=== PATIENT | female | born 1970 | race Two or more races ===

== ENCOUNTER 2023-09-23 14:54 | Emergency (ER) | payer SELFPAY ==
[~2023-09-23] VITALS: Ht 170.2 cm; Wt 140.5 kg
[2023-09-23] MEDS ORDERED: LISI10TA34 PO (16:16)
[2023-09-23 16:18] LABS: Basophils # (auto) 0 10 ^3/uL (0-0.2); Basophils % (auto) 0.2 % (0.0-2.0); Eosinophils # (auto) 0.1 10 ^3/uL (0-0.8); Eosinophils % (auto) 1.1 % (0.0-7.0); Hemoglobin 12.4 g/dL (12.2-16.2); Lymphocytes # (auto) 2.4 10 ^3/uL (0.4-5.4); Lymphocytes % (auto) 33.2 % (10.0-50.0); Mean Corpuscular Hemoglobin 27.9 pg (28.0-32.0); Mean Corpuscular Hgb Conc. 33.5 g/dL (32.0-36.0); Mean Corpuscular Volume 83.2 fL (80.0-100.0); Monocytes # (auto) 0.3 10 ^3/uL (0-1.3); Monocytes % (auto) 4.7 % (0.0-12.0); Neutrophils # (auto) 4.5 10 ^3/uL (1.6-8.6); Neutrophils % (auto) 60.8 % (37.0-80.0); Red Blood Cells 4.44 10^6/uL (4.0-5.20); Red Cell Distribution Width 14.8 % (11.8-14.3); White Blood Cell 7.4 10^3/uL (4.4-10.8)
[2023-09-23] MEDS: cloNIDine HCL 0.1 MG TAB PO ONE (16:23)
[2023-09-23 16:27] VITALS: BP 172/82; PULSE 84; RESP 19; TEMP 97.7; O2SAT 97
[2023-09-23 16:35] LABS: Chloride 105 mmol/L (98-107); Potassium 3.7 mmol/L (3.5-5.1); Sodium 139 mmol/L (136-145)
[2023-09-23 16:36] LABS: Anion Gap 4 (5-15); Carbon Dioxide 30 mmol/L (20-30)
[2023-09-23 16:37] LABS: Calcium 9.5 mg/dL (8.5-10.1)
[2023-09-23 16:41] LABS: Glucose 262 mg/dL (74-106)
[2023-09-23 16:42] LABS: BUN/Creatinine Ratio 23.8 (10.0-20.0); Blood Urea Nitrogen 20 mg/dL (9-23)
== END 2023-09-23 17:29 | disposition home or self-care (01) ==
LOC: ER 14:54
DX: I16.0 Hypertensive urgency (principal); I10 Essential (primary) hypertension; E11.9 Type 2 diabetes mellitus without complications; Z79.899 Other long term (current) drug therapy
CPT/HCPCS: 36415; 80048; 85025

== ENCOUNTER 2024-08-07 07:02 | Emergency (ER) | payer MEDICAID, OTHER ==
[~2024-08-07] VITALS: Ht 162.6 cm; Wt 120.0 kg
[~2024-08-07 07:02] MED LIST: LISI10TA34 PO
[2024-08-07 07:34] VITALS: BP 150/80; PULSE 87; RESP 18; TEMP 97.7; O2SAT 95
--- NOTE | 2024-08-07 08:18 | DVH ---
EXAM: XY L KNEE 3V XRAY HISTORY: Knee pain, rule out OA COMPARISON: None TECHNIQUE: 3 views of the left knee were performed. FINDINGS: No acute fracture is identified about the left knee. Medial compartment joint space narrowing. Tric ompartment osteophytes. IMPRESSION: 1. No fracture or dislocation in the knee. 2. Osteoarthritis.
[2024-08-07] MEDS: LIDOCAINE 1% HCL (LOCAL ANESTH.) INJ 20ML MDV ID ONE (09:03)
[2024-08-07] MEDS: TRIAMCINOLONE 40MG/ML 1ML VIAL IX ONE (09:03)
[2024-08-07] MEDS ORDERED: MELO7.5T7 PO (09:35)
--- NOTE | 2024-08-07 09:36 | ED.PDOC ---
Musculoskeletal HPI Comments This is a pleasant 54-year-old female who is obese and presents with a chief complaint of atraumatic left knee pain Pain rated moderate to severe able to get minimal relief with kypl-ido-eqwyhrg pain medicine Able to bear weight on the leg Denies trauma to the knee or recent fall Denies skin color changes around the knee Denies masses around the knee Denies popping/locking/giving out of the knee Denies fever chills night sweats nausea vomiting Denies previous surgeries to the knee nor significant injury Chief Complaint: Lower Extremity Time Seen by MD: 07:19 Reviewed Notes: Nurses Notes, Medications, Allergies Allergies: Coded Allergies: NO KNOWN ALLERGIES (Unverified , 08/07/24) Home Meds Active Scripts Meloxicam (Meloxicam) 7.5 Mg Tab, 1 TAB PO DAILY for 30 Days, #30 TAB 0 Refills Prov:ANGÉLICA HERNANDEZ NP 08/07/24 Lisinopril (Lisinopril) 10 Mg Tab, 10 MG PO DAILY for 20 Days, #20 TAB Prov:TANESHA HONEYCUTT MD 09/23/23 Information Source: Patient Mode of Arrival: Ambulatory Past Medical History PAST MEDICAL HISTORY: Cancer, DM, HTN Surgical History: 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 History Family History Family History: Family hx of DM, Family hx of Cancer Social History Smoker: Non-Smoker Alcohol: Denies ETOH Use Drugs: Denies Drug Use Lives In: Home All Other Systems: Reviewed and Negative (Per HPI) Physical Exam General Appearance: No Apparent Distress, Normal HEENT: Normal ENT Inspection, Pharynx Normal, TMs Normal Neck: Full Range of Motion, Non-Tender, Normal, Normal Inspection Respiratory: Chest Non-Tender, Lungs Clear, No Accessory Muscle Use, No Respiratory Distress, Normal Breath Sounds Cardiovascular: No Edema, No JVD, No Murmur, No Gallop, Normal Peripheral Pulses, Regular Rate/Rhythm Breast Exam: Deferred Gastrointestinal: No Organomegaly, Non Tender, No Pulsatile Mass, Normal Bowel Sounds, Soft Genitalia: Deferred Pelvic: Deferred Rectal: Deferred Extremities: No calf tenderness, Normal capillary refill, Normal inspection, Normal range of motion, Non-tender, No pedal edema Musculoskeletal : Location: Left Extremity Location: Knee (Pain with flexion-extension. Valgus valgus stress test positive. Distal neuro sensation and) Apperance: Normal Neurologic: Alert, refiner operator II-XII nml as Tested, No Motor Deficits, Normal Affect, Normal Mood, No Sensory Deficits Cerebellar Function: Normal Reflexes: Normal Skin: Dry, Normal Color, Warm Lymphatic: No Adenopathy Was a procedure done? Was a procedure done?: Yes Sedation Sedation?: No Other Procedure Procedure Knee Injection Indication Pain/Arthritis Anesthetic 1% Lidocaine Prep Alcohol Success Yes Informed consent obtained: Yes Risks, benefits, and alternati: Yes Notes Left knee lateral approach The patient's right knee was prepped in the usual sterile fashion using alcohol and iodine. A 25-gauge, 1-1/2 inch needle into the knee joint using the lateral approach. Through the needle I injected a solution containing 1 cc 40 mg of Kenalog and 4 cc of 1% lidocaine. The needle was removed and a sterile dressing (Band-Aid) was applied patient tolerated procedure well Differential Diagnosis EXT Differential Diagnosis: Arthritis X-Ray, Labs, Meds, VS Vital Signs Date Time Temp Pulse Resp B/P (MAP) Pulse Ox O2 Delivery O2 Flow Rate FiO2 08/07/24 07:34 87 18 95 Room Air 08/07/24 07:34 97.7 87 18 150/80 (103) 95 97.7 08/07/24 07:16 97.7 87 18 150/80 (103) 95 97.7 X-Ray, Labs, Meds, VS Comment X-ray of the knee ordered. X-ray interpreted by radiologist and reviewed by me IMPRESSION: Consistent with OA. No fracture, is seen. If there is high index of suspicion, consider MRI. Patient was also informed that we recommend against routine use of the intra articular glucocorticoid injections for knee pain. Patient was informed that we limit the use of intra-articular injections to patients with moderate to severe pain and to have failed other treatment options and who are seeking short-term pain relief. Patient was also informed that this procedure is not routinely recommended in clinical practice and patient should not receive multiple nor repetitive injections. Patient was also informed that serial injections like every 3 months are discouraged due to potential negative effects on the progression of cartilage damage in the knee osteoarthritis patient's Risks and benefits of steroid injections were discussed with patient and patient gave verbal consent to the procedure. Prescribed Mobic for the management of acute knee pain. Start with 7.5 mg daily and may increase to 15 mg daily as needed for pain Voltaren gel as needed for the pain Recommend light walking under the sun for 30 minutes a day Avoiding running jogging high-impact activities Stretch as tolerated Ice 3x/day for 5 minutes Wear knee brace for stability as needed, elevate leg swelling aggravated Time of 1ST Reevaluation: 09:35 Reevaluation 1ST: Improved Patient Education/Counseling: Diagnosis, Treatment Family Education/Counseling: Diagnosis, Treatment Departure 1 Departure Time of Disposition: 09:34 Impression: Primary Impression: Arthritis of knee Disposition: HOME / SELF CARE / HOMELESS Condition: Stable e-Prescriptions Meloxicam (Meloxicam) 7.5 Mg Tab 1 TAB PO DAILY for 30 Days, #30 TAB 0 Refills Prov: ANGÉLICA HERNANDEZ NP 08/07/24 Discharged With: Self Critical Care Note Critical Care Time?: No Stability Stability form required: No Heart Score Heart Score: Heart Score Response (Comments) Value History N/A 0 EKG N/A 0 Age N/A 0 Risk Factors N/A 0 Troponin N/A 0 Total 0 ANGÉLICA HERNANDEZ NP Aug 07, 2024 09:35
== END 2024-08-07 09:40 | disposition home or self-care (01) ==
LOC: ER 07:02
DX: M17.12 Unilateral primary osteoarthritis, left knee (principal); I10 Essential (primary) hypertension; E11.9 Type 2 diabetes mellitus without complications; E66.9 Obesity, unspecified; Z79.899 Other long term (current) drug therapy; Z98.51 Tubal ligation status
CPT/HCPCS: 20610; 73562; 99283; J2003; J3301